=== PATIENT | female | born 1960 ===

== ENCOUNTER 2017-02-19 13:03 | Emergency (ER) | payer BC, OTHER ==
[2017-02-19 13:27] VITALS: BP 148/80; PULSE 90; RESP 18; TEMP 98.1; O2SAT 98
--- NOTE | 2017-02-19 14:54 | ED PDOC ---
HPI: Psych/Substance Abuse Time Seen by Provider: 02/19/17 13:45 Chief Complaint (Nursing): Psychiatric Evaluation Chief Complaint (Provider): Psychiatric Evaluation Onset/Duration Of Symptoms: Days (x8 days) Current Symptoms Are (Timing): Still Present Additional Complaint(s): 56 y/o female presents to the ED complaining of anxiety x 1 week. Patient feels like its getting worse everyday, is not getting proper sleep and is hallucinations but denies homicidal or suicidal ideation. pt is seeing a psychiatrist. i Past Medical History Vital Signs: Last Vital Signs Temp 98.1 F 02/19/17 13:23 Pulse 90 02/19/17 13:23 Resp 18 02/19/17 13:23 BP 148/80 02/19/17 13:23 Pulse Ox 98 02/19/17 13:23 - Medical History PMH: Anxiety, Depression, HTN Denies: Diabetes, Hepatitis, HIV, Seizures, Sexually Transmitted Disease - Family History Family History: States: Unknown Family Hx - Home Medications Home Medications: Ambulatory Orders Medication Instructions Recorded Escitalopram [Lexapro] 20 mg PO HS #30 tab 02/27/16 - Allergies Allergies/Adverse Reactions: Allergies Allergy/AdvReac Type Severity Reaction Status Date / Time No Known Allergies Allergy Verified 02/27/16 16:32 Review of Systems ROS Statement: Except As Marked, All Systems Reviewed And Found Negative (As per HPI, otherwise negative) Psych: Positive for: Anxiety. Negative for: Suicidal ideation, Other ( Homicidal Ideation) Physical Exam - Reviewed Nursing Documentation Reviewed: Yes Vital Signs Reviewed: Yes - Physical Exam Appears: Positive for: Non-toxic, No Acute Distress Head Exam: Positive for: ATRAUMATIC, NORMAL INSPECTION, NORMOCEPHALIC Skin: Positive for: Normal Color, Warm, DRY Respiratory: Negative for: Accessory Muscle Use, Respiratory Distress - ECG O2 Sat by Pulse Oximetry: 98 (RA) Pulse Ox Interpretation: Normal Medical Decision Making Medical Decision Making: Time: 13:45 Initial Plan: Evaluated by crisis for anxiety by Dr. del rio.pt feels safe going home will f.u with pmd and has appt with psychiatrist. Scribe Attestation: Documented by Guicho Medina, acting as a scribe for Aimee Alex PA-C Provider Scribe Attestation: All medical record entries made by the Scribe were at my direction and personally dictated by me. I have reviewed the chart and agree that the record accurately reflects my personal performance of the history, physical exam, medical decision making, and the department course for this patient. I have also personally directed, reviewed, and agree with the discharge instructions and disposition. Disposition - Clinical Impression Clinical Impression: Anxiety - Patient ED Disposition Is Patient to be Admitted: No - Disposition Disposition: Routine/Home Disposition Time: 19:56 Condition: STABLE Instructions: Anxiety (ED) Forms: [facility] (Ivorian) Print Language: TAIWANESE
== END 2017-02-19 14:57 | disposition home or self-care (01) ==
LOC: H.ER 13:03
DX: F41.9 Anxiety disorder, unspecified (principal); F32.9 Major depressive disorder, single episode, unspecified; I10 Essential (primary) hypertension

== ENCOUNTER 2017-03-14 07:11 | Inpatient (IN) | payer BC ==
[2017-03-14 07:15] VITALS: BMI 42.2
--- NOTE | 2017-03-14 08:07 | ED PDOC ---
HPI: Chest Pain Time Seen by Provider: 03/14/17 07:29 Chief Complaint (Nursing): Anxiety History Per: Patient, Family, Release And Technical Records Clerk (lizzie [place] speaking nurse) Onset/Duration Of Symptoms: Days (2), Waxing/Waning, Gradual, Worse Since (pt awoke) Current Symptoms Are (Timing): Still Present Severity: Moderate Quality: Dull Associated Symptoms: denies: Nausea, Dyspnea, Diaphoresis, Syncope Modifying Factors: None Exacerbating Factors: None Alleviating Factors: None Additional History Per: Patient Additional Complaint(s): pt c/o anxiety , chest pressure and back pain for 2 days, pt states she has been having trouble sleeping, pt states her medication is not working, pt denies shortness of breath. pt states similar sx due to anxiety in the past but this is worse, Past Medical History Reviewed: Historical Data, Nursing Documentation, Vital Signs Vital Signs: Last Vital Signs Temp 98.6 F 03/14/17 07:14 Pulse 68 03/14/17 07:30 Resp 20 03/14/17 07:14 BP 121/73 03/14/17 07:14 Pulse Ox 98 03/14/17 15:41 - Medical History PMH: Anxiety, Depression, HTN Denies: Diabetes, Hepatitis, HIV, Seizures, Sexually Transmitted Disease - Family History Family History: States: Unknown Family Hx - Living Arrangements Living Arrangements: With Family - Social History Current smoker - smoking cessation education provided: No - Home Medications Home Medications: Ambulatory Orders Medication Instructions Recorded Escitalopram [Lexapro] 20 mg PO HS #30 tab 02/27/16 - Allergies Allergies/Adverse Reactions: Allergies Allergy/AdvReac Type Severity Reaction Status Date / Time No Known Allergies Allergy Verified 02/27/16 16:32 Review of Systems ROS Statement: Except As Marked, All Systems Reviewed And Found Negative Constitutional: Negative for: Fever, Chills Cardiovascular: Positive for: Chest Pain, Palpitations. Negative for: Edema, Light Headedness Respiratory: Negative for: Cough, Shortness of Breath Gastrointestinal: Negative for: Nausea, Vomiting, Abdominal Pain, Diarrhea Genitourinary Female: Negative for: Dysuria Musculoskeletal: Negative for: Neck Pain Neurological: Negative for: Weakness, Numbness, Headache, Dizziness Psych: Positive for: Anxiety, Depression. Negative for: Psychosis, Suicidal ideation, Withdrawal Physical Exam - Reviewed Nursing Documentation Reviewed: Yes Vital Signs Reviewed: Yes - Physical Exam Appears: Positive for: Uncomfortable (anxious) Head Exam: Positive for: ATRAUMATIC, NORMAL INSPECTION, NORMOCEPHALIC Skin: Positive for: Normal Color, Warm, Dry (pt has lipoma at left upper chest) Eye Exam: Positive for: Normal appearance, EOMI, PERRL. Negative for: Periorbital swelling, Periorbital tenderness Neck: Positive for: Normal, Painless ROM, Supple. Negative for: Decreased ROM, Limited ROM, Trachea Midline Cardiovascular/Chest: Positive for: Regular Rate, Rhythm, Chest Non Tender. Negative for: Edema, Gallop, Murmur, Bradycardia, Tachycardia Respiratory: Positive for: Normal Breath Sounds. Negative for: Decreased Breath Sounds, Accessory Muscle Use, Crackles, Rales, Rhonchi, Stridor, Wheezing , Respiratory Distress, Plerual Rub Pulses-Radial (L): 2+ Pulses-Radial (R): 2+ Gastrointestinal/Abdominal: Positive for: Normal Exam, Bowel Sounds, Soft. Negative for: Tenderness Back: Positive for: Normal Inspection. Negative for: L CVA Tenderness, R CVA Tenderness Extremity: Positive for: Normal ROM. Negative for: Tenderness, Pedal Edema, Calf Tenderness, Deformity, Swelling Neurologic/Psych: Positive for: Alert, plumbing technician II-XII, Oriented, Mood/Affect ( anxious, tremulous), Gait (steady). Negative for: Motor/Sensory Deficits, Aphasia, Facial Droop - Laboratory Results Result Diagrams: 03/14/17 08:34 03/14/17 08:34 - ECG ECG: Positive for: Interpreted By Nj ECG Rhythm: Positive for: Normal QRS, Normal ST Segment, Sinus Rhythm (69), ST/ T Changes Interpretation Of Abn EKG: rate of 69 no evidence of ischemia O2 Sat by Pulse Oximetry: 98 Pulse Ox Interpretation: Normal - Radiology X-Ray: Interpreted by Nj X-Ray Interpretation: No Acute Disease - Progress ED Course And Treament: cta negative for aortic dissection. pt has no sob. after pt required ativan 2 x awaiting crisis clearance. pt seen and eval by crisis pt medically stable for the psychiatric floor, no cp a single neg trop r/o mi in this pt with over 24 hours of sx. pt agree's with plan and is comfortable PROCEDURE: CT Chest with contrast (Pulmonary Angiogram) HISTORY: cp r/o pe COMPARISON: None available. TECHNIQUE: Axial computed tomography images were obtained of the chest in the pulmonary arterial phase of enhancement. Coronal and sagittal reformatted images were created and reviewed. Intravenous contrast dose: Visipaque 320, 99 cc. Radiation dose: Total exam DLP = 417.29 mGy-cm. This CT exam was performed using one or more of the following dose reduction techniques: Automated exposure control, adjustment of the mA and/or kV according to patient size, and/or use of iterative reconstruction technique. FINDINGS: PULMONARY ARTERIES: Contrast opacification of the pulmonary artery system is limited to the main pulmonary artery and main right and left branches alone. No central pulmonary embolus is identified in this examination. Branches beyond this level are not adequately opacified. Increased noise related to body habitus limits evaluation of small pulmonary artery branches as well AORTA: No acute findings. No thoracic aortic aneurysm. LUNGS: No infiltrate or significant pulmonary mass identified bilaterally. A 5 mm calcified granuloma seen at the right middle lobe anteromedially. PLEURAL SPACES: Unremarkable. No effusion or pneuomothorax. HEART: Cardiac size is borderline enlarged. No pericardial effusion identified. No pulmonary vascular derangement grossly evident. LYMPH NODES: No lymphadenopathy. BONES, CHEST WALL: Unremarkable. No fracture or destructive lesion OTHER FINDINGS: Prominent hepatic steatosis identified. IMPRESSION: 1. Due to limited contrast opacification of the pulmonary arteries as well as an increased noise from body habitus, evaluation of the pulmonary arteries is limited to the central pulmonary arteries which appear normal. Branches beyond the main right and left pulmonary arteries are poorly evaluated. 2. No acute infiltrate pleural or pericardial effusion appreciable. There is borderline cardiomegaly. No pulmonary vascular derangement appreciated. 3. Prominent hepatic steatosis identified. Re-evaluation Time: 15:40 Condition: Improved Disposition - Clinical Impression Clinical Impression: Anxiety attack, Depression - Patient ED Disposition Is Patient to be Admitted: Yes Counseled Patient/Family Regarding: Studies Performed, Diagnosis - Disposition Disposition Time: 16:49 Condition: GOOD - Pt Status Changed To: Hospital Disposition Of: Inpatient - Admit Certification Admit to Inpatient:: After my assessment, the patient will require hospitalization for at least two midnights. This is because of the severity of symptoms shown, intensity of services needed, and/or the medical risk in this patient being treated as an outpatient. - POA Present On Arrival: None
[2017-03-14 08:43] LABS: BASO % 0.5 % (0.0-2.0); EOS # 0.1 K/uL (0.0-0.7); EOS % 0.7 % (0.0-4.0); HEMATOCRIT 43.7 % (34.0-47.0); LYMPH # 2.1 K/uL (1.0-4.3); LYMPH % 21.5 % (20.0-40.0); MEAN CELL VOLUME 86.3 fl (81.0-99.0); MEAN CORPUSCULAR HEMOGLOBIN 29.7 pg (27.0-31.0); MEAN CORPUSCULAR HGB CONC 34.4 g/dL (33.0-37.0); MEAN PLATELET VOLUME 7.6 fl (7.2-11.7); MONO # 0.5 K/uL (0.0-0.8); MONO % 5.3 % (0.0-10.0); NEUT # 7.1 K/uL (1.8-7.0); NRBC % 0.1 % (0.0-0.0); WHITE BLOOD COUNT 9.8 K/uL (4.8-10.8)
[2017-03-14 08:49] LABS: RBC URINE 2 /hpf (0-3); URINE BACTERIA OCC (<OCC); URINE BILIRUBIN NEGATIVE (NEGATIVE); URINE BLOOD MODERATE (NEGATIVE); URINE COLOR YELLOW (YELLOW); URINE GLUCOSE (UA) NEG (Normal); URINE KETONE NEGATIVE (NEGATIVE); URINE LEUKOCYTE ESTERASE NEG Leu/uL (Negative); URINE PROTEIN NEGATIVE (NEGATIVE); URINE UROBILINOGEN 0.2-1.0 mg/dL (0.2-1.0); WBC URINE 1 /hpf (0-5)
[2017-03-14 08:53] LABS: ALKALINE PHOSPHATASE 103 U/L (38-126); ALT/SGPT 105 U/L (9-52); AST/SGOT 46 U/L (14-36); BILIRUBIN,TOTAL 0.6 mg/dl (0.2-1.3); BLOOD UREA NITROGEN 9 mg/dl (7-17); CALCIUM 9.8 mg/dL (8.4-10.2); CARBON DIOXIDE 21 mmol/L (22-30); CHLORIDE 109 mmol/L (98-107); GFR AFRICAN-AMERICAN > 60; GLUCOSE,RANDOM 165 mg/dL (65-105); LIPASE 66 U/L (23-300); MAGNESIUM 1.9 MG/DL (1.6-2.3); POTASSIUM 4.3 MMOL/L (3.6-5.0); SODIUM 143 mmol/l (132-148); TOTAL PROTEIN 8.4 G/DL (6.3-8.2)
[2017-03-14 08:54] LABS: ALB/GLOB RATIO 1.4 (1.0-2.1)
[2017-03-14 08:55] LABS: PARTIAL THROMBOPLASTIN TIME 28.3 Seconds (25.6-37.1)
[2017-03-14] MEDS ORDERED: Iodixanol 320 MG/ML 100 ML BOTTLE IV ONE ×2 (10:21→13:30)
[2017-03-14] MEDS ORDERED: Sodium Chloride 0.9% 0 ML IV ONE (10:21)
[2017-03-14] MEDS ORDERED: Sodium Chloride 0.9% 50 ML IV ONE (13:31)
--- NOTE | 2017-03-14 14:11 | RAD ---
PROCEDURE: CHEST RADIOGRAPH, 1 VIEW HISTORY: cp COMPARISON: None available. FINDINGS: LUNGS: Inspiratory volume appears somewhat limited. No definite airspace disease bilaterally. PLEURA: No pneumothorax or pleural fluid seen. CARDIOVASCULAR: Cardiac silhouette appears upper limits normal size. There is no pulmonary derangement appreciated. Frontal technique may result in cardiac silhouette magnification. OSSEOUS STRUCTURES: No significant abnormalities. VISUALIZED UPPER ABDOMEN: Normal. OTHER FINDINGS: None. IMPRESSION: Limited inspiratory volume. No acute infiltrate pleural effusion or pneumothorax bilaterally. Questionable borderline cardiomegaly.
--- NOTE | 2017-03-14 15:16 | CT ---
PROCEDURE: CT Chest with contrast (Pulmonary Angiogram) HISTORY: cp r/o pe COMPARISON: None available. TECHNIQUE: Axial computed tomography images were obtained of the chest in the pulmonary arterial phase of enhancement. Coronal and sagittal reformatted images were created and reviewed. Intravenous contrast dose: Visipaque 320, 99 cc. Radiation dose: Total exam DLP = 417.29 mGy-cm. This CT exam was performed using one or more of the following dose reduction techniques: Automated exposure control, adjustment of the mA and/or kV according to patient size, and/or use of iterative reconstruction technique. FINDINGS: PULMONARY ARTERIES: Contrast opacification of the pulmonary artery system is limited to the main pulmonary artery and main right and left branches alone. No central pulmonary embolus is identified in this examination. Branches beyond this level are not adequately opacified. Increased noise related to body habitus limits evaluation of small pulmonary artery branches as well AORTA: No acute findings. No thoracic aortic aneurysm. LUNGS: No infiltrate or significant pulmonary mass identified bilaterally. A 5 mm calcified granuloma seen at the right middle lobe anteromedially. PLEURAL SPACES: Unremarkable. No effusion or pneuomothorax. HEART: Cardiac size is borderline enlarged. No pericardial effusion identified. No pulmonary vascular derangement grossly evident. LYMPH NODES: No lymphadenopathy. BONES, CHEST WALL: Unremarkable. No fracture or destructive lesion OTHER FINDINGS: Prominent hepatic steatosis identified. IMPRESSION: 1. Due to limited contrast opacification of the pulmonary arteries as well as an increased noise from body habitus, evaluation of the pulmonary arteries is limited to the central pulmonary arteries which appear normal. Branches beyond the main right and left pulmonary arteries are poorly evaluated. 2. No acute infiltrate pleural or pericardial effusion appreciable. There is borderline cardiomegaly. No pulmonary vascular derangement appreciated. 3. Prominent hepatic steatosis identified.
[2017-03-14 18:45] VITALS: O2SAT 97
[2017-03-14] MEDS ORDERED: Magnesium Hydroxide Susp 30 ml UD PO PRN (20:55)
[2017-03-14] MEDS ORDERED: DiphenhydrAMINE 50 mg/ml Inj IM PRN (20:55)
[2017-03-14] MEDS ORDERED: Alum-Mag Hydrox-Simethicone Susp (30 mL) PO PRN (20:55)
[2017-03-14] MEDS ORDERED: Bismuth Subsalicylate 262 mg/15 ml Sus (240 ml) PO PRN (20:57)
--- NOTE | 2017-03-14 21:44 | PCM.BM ---
Treatment Plan Problems - Problems identified on initial assessmt Anxiety Date Initiated: 03/14/17 Time Initiated: 21:41 Assessment reference: NA Status: Active Altered Sleep Patterns Date Initiated: 03/14/17 Time Initiated: 21:41 Assessment reference: NA Status: Active Treatment assets and liabiliti Patient Assests: cooperative, physically healthy, good support system, negotiates basic needs Patient Liabilities: language/speech - Milieu Protocol Maintain good personal hygiene: daily Encourage regular showers, daily Remind patient to perform daily oral care Conduct patient checks and document Observation sheet: Q15 minutes Maintain personal safety: every shift Educate patient to report safety concerns to staff, every shift Monitor environment for contraband/sharps Medication safety: Monitor for expected outcome, potential side effects: every shift, Assess barriers to learning: every shift, Assess readiness for medication education: every shift
[2017-03-15 09:06] LABS: T4 13.4 ug/dl (5.5-11.0)
[2017-03-15 09:20] LABS: THYROID STIMULATING HORMONE 2.16 mIU/ML (0.46-4.68)
--- NOTE | 2017-03-15 12:29 | CARD ---
APPROVED REPORT EKG Measurement Heart [id number] <Conclusion> Normal sinus rhythm Left axis deviation Poor R wave progression in the chest leads Abnormal ECG baseline artefact
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
[2017-03-16 09:14] VITALS: RESP 20
--- NOTE | 2017-03-16 13:45 | PCM.PYCHDC ---
Mental Status Examination - Mental Status Examination Orientation: Person, Place, Situation, Time Memory: Intact Mood: Neutral Affect: Broad Speech: Appropriate Attention: WNL Concentration: WNL Association: WNL Fund of Knowledge: WNL Formal Thought Process: No Impairment Description of patient's judgement and insight: fair insight and judgement Psychotic Thoughts and Behaviors: pt denied perceptual disturbances, non elicited Suicidal Ideation: No Current Homicidal Ideation?: No Discharge Summary - Discharge Note Reason for Hospitalization: t is a 57 year old, , Female, who was brought to the ED via EMS secondary to pt presenting with severe symptoms of anxiety. Pt reported that she has been feeling depressed and anxious for the past 3 weeks. Pt reported that she has not been taking care of the ADLs as she is only taking a shower 3 times per week. Pt has recently lost her job, which contributed to her depression she also has been prior seen by PMD and was on xanax 2mg tid , this was recently discontinued by her psychiatrist which made her increasingly anxious, pt reported some visual hallucinations denied s/hi Laboratory Data: Abnormal Lab Results 03/15/17 08:32 RPR Nonreactive Consultations:: List each consultation separately and include: 1. Reason for request. 2. Findings. 3. Follow-up Summary of Hospital Course include:: 1. Description of specific treatment plan utilized for patients during their course of treatmen. 2. Summarize the time- course for resolution of acute symptoms and/or regressed behaviors. 3. Describe issues identified and worked on during hospitalization. 4. Describe medication utilized. 5. Describe medical problems identified and treated. 6. Reassessment of suicide risk Summary of Hospital Course: Pt on admission was started on neurontin 100mg tid for anxiety cymbalta 30mg and trazodone 100mg for insomnia pt responded well to medications. attended groups, denied any side effects of medications , on discharge, mental status was stable, denied suicidal or homicidal ideations denied perceptual disturbances follow up arranged with outpatient program - Final Diagnosis (DSM 5) Condition upon Discharge: GOOD Disposition: HOME/ ROUTINE Follow-up Treatment Plan: start neurontin 100mg tid klonopin 0.25mg tid prn cymbalta 30mg trazdone 100mg qhs group and supportive therapy Prescriptions/Medication Reconciliation: DULoxetine [Cymbalta] 30 mg PO DAILY 30 Days #30 ecc Gabapentin [Neurontin] 100 mg PO TID 30 Days #90 cap traZODone [Desyrel] 100 mg PO HS 30 Days #30 tab
[2017-03-16 16:45] VITALS: BP 138/82; PULSE 80; TEMP 98.4
--- NOTE | 2017-03-16 18:22 | CP.PCM.CON ---
History of Present Illness - History of Present Illness History of Present Illness: Consult note by Dr. Cruz 57 y/o F with PMHx of Fibromyalgia, chronic allergies, who was brought to the ED via EMS secondary to pt presenting with severe symptoms of anxiety admitted in Psych unit to manage depression and anxiety. Patient states that she feels less anxious and denies Cp, SOB, N/V, abdominal pain, urinary symptoms, diarrheas. Patient reports a h/o chronic pain diagnosed as fibromyalgia for her PMD, Dr. Sher, who prescribes tramadol. PMD: Dr. Sher Review of Systems - Review of Systems All systems: reviewed and no additional remarkable complaints except (as per HPI ) Past Patient History - Past Social History Smoking Status: Light Smoker < 10 Cigarettes Daily - CARDIAC Hx Cardiac Disorders: No - PULMONARY Hx Tuberculosis: No - NEUROLOGICAL Hx Seizures: No - HEMATOLOGICAL/ONCOLOGICAL Hx Human Immunodeficiency Virus (HIV): No - GENITOURINARY/GYNECOLOGICAL Hx Sexually Transmitted Disorders: No - PSYCHIATRIC Hx Anxiety: Yes Hx Depression: Yes Hx Substance Use: No - SURGICAL HISTORY Hx Surgeries: Yes Hx Hysterectomy: Yes Other/Comment: right ovarian cyst removal. - ANESTHESIA Hx Anesthesia: Yes Meds Home Medications: Home Medication List Medication Instructions Recorded Confirmed Type DULoxetine [Cymbalta] 30 mg PO DAILY 30 Days #30 ecc 03/16/17 Rx Gabapentin [Neurontin] 100 mg PO TID 30 Days #90 cap 03/16/17 Rx traZODone [Desyrel] 100 mg PO HS 30 Days #30 tab 03/16/17 Rx Allergies/Adverse Reactions: Allergies Allergy/AdvReac Type Severity Reaction Status Date / Time No Known Allergies Allergy Verified 02/27/16 16:32 - Medications Medications: Current Medications Acetaminophen (Tylenol 325mg Tab) 650 mg PO Q4 PRN PRN Reason: pain level 4-7 Last Admin: 03/14/17 22:02 Dose: 650 mg Al Hydrox/Mg Hydrox/Simethicone (Maalox Plus 30 Ml) 30 ml PO Q4 PRN PRN Reason: Dyspepsia Bismuth Subsalicylate (Pepto-Bismol) 524 mg PO Q4 PRN PRN Reason: Diarrhea Clonazepam (Klonopin) 0.25 mg PO TID PRN PRN Reason: Anxiety Diphenhydramine HCl (Benadryl) 50 mg IM Q6 PRN PRN Reason: Extrapyramidal S/S Unable PO Diphenhydramine HCl (Benadryl) 50 mg PO Q6 PRN PRN Reason: Extrapyramidal Symptoms Diphenhydramine HCl (Benadryl) 50 mg PO HS PRN PRN Reason: Sleep Last Admin: 03/14/17 22:03 Dose: 50 mg Duloxetine HCl (Cymbalta) 30 mg PO DAILY [facility] Last Admin: 03/16/17 08:34 Dose: 30 mg Gabapentin (Neurontin) 100 mg PO TID [facility] Last Admin: 03/16/17 17:36 Dose: 100 mg Haloperidol (Haldol) 5 mg PO Q4 PRN PRN Reason: Agitation Haloperidol Lactate (Haldol) 5 mg IM Q4 PRN PRN Reason: Agitation, Unable to Take PO Lorazepam (Ativan) 2 mg IM Q4 PRN PRN Reason: Anxiety/Agitation,Unable PO Lorazepam (Ativan) 2 mg PO Q4 PRN PRN Reason: Anxiety/Agitation Magnesium Hydroxide (Milk Of Magnesia) 30 ml PO HS PRN PRN Reason: Constipation Trazodone HCl (Desyrel) 100 mg PO HS [facility] Last Admin: 03/15/17 21:15 Dose: 100 mg Physical Exam - Constitutional Appears: Non-toxic, No Acute Distress - Eye Exam Eye Exam: Normal appearance - ENT Exam ENT Exam: Mucous Membranes Moist - Respiratory Exam Respiratory Exam: Clear to Auscultation Bilateral, NORMAL BREATHING PATTERN. absent: Rales, Rhonchi, Wheezes, Respiratory Distress - Cardiovascular Exam Cardiovascular Exam: REGULAR RHYTHM, RRR, +S1, +S2 - GI/Abdominal Exam GI & Abdominal Exam: Normal Bowel Sounds, Soft. absent: Firm, Guarding, Rigid, Tenderness - Extremities Exam Extremities exam: Positive for: normal inspection. Negative for: calf tenderness, pedal edema - Back Exam Back exam: NORMAL INSPECTION. absent: CVA tenderness (L), CVA tenderness (R) - Neurological Exam Neurological exam: Alert, Normal Gait, Oriented x3 Additional comments: mild hand tremors - Skin Skin Exam: Dry, Intact, Normal Color Results - Vital Signs Recent Vital Signs: Last Vital Signs Temp 98.4 F 03/16/17 16:45 Pulse 80 03/16/17 16:45 Resp 20 03/16/17 16:45 BP 138/82 03/16/17 16:45 Pulse Ox 97 03/14/17 18:45 - Labs Result Diagrams: 03/14/17 08:34 03/14/17 08:34 Labs: Laboratory Results - last 24 hr 03/15/17 08:32 RPR Nonreactive Assessment & Plan - Assessment and Plan (Free Text) Plan: H/O Fibromyalgia started on Cymbalta by Psych will f/u while in house f/u labs Major depression Manage by Psych Generalized anxiety disorder Manage by Psych - Date & Time Date: 03/16/17 Time: 08:35
== END 2017-03-16 19:00 | disposition home or self-care (01) | DRG 881 ==
LOC: H.ER 07:11 → H.ERHOLD 16:39 → H.PSYCH 20:44
PROVIDERS: ADMIT Psychiatry & Neurology Psychiatry; ATTEND Psychiatry & Neurology Psychiatry
PROC: GZHZZZZ Group Psychotherapy (ICD-10-PCS; principal; 2017-03-14)
PROC: GZ56ZZZ Individual Psychotherapy, Supportive (ICD-10-PCS; 2017-03-14)
DX: F32.9 Major depressive disorder, single episode, unspecified (principal); F41.1 Generalized anxiety disorder; G47.00 Insomnia, unspecified; I10 Essential (primary) hypertension; M79.7 Fibromyalgia; Z62.810 Personal history of physical and sexual abuse in childhood